=== PATIENT | female | born 1995 | race Caucasian/White ===

== ENCOUNTER 2016-08-15 20:57 | Emergency (ER) | payer OTHER ==
[~2016-08-15] VITALS: Ht 175.3 cm; Wt 62.0 kg
[~2016-08-15 20:57] MED LIST: BACT800T5 PO; DICL50TA3 PO; MACR100C PO; Z.0.BCPILL PO; ZOVI800T13 PO
[2016-08-15 20:59] VITALS: BP 123/64; PULSE 79; RESP 14; TEMP 98.5; O2SAT 97
--- NOTE | 2016-08-15 21:46 | PD ---
HPI Chief Complaint: ENT Complaint Time Seen by Provider: 21:39 Travel History International Travel<30 days: No Contact w/Intl Traveler<30days: No Traveled to known affect area: No History of Present Illness HPI 21-year-old white female presents to emergency Department with complaints of sore throat for the past few days. She states that she's had some nasal congestion and cough. She brought up some mucus with blood in it prior to arrival. She denies any fever or chills. No ear pain, shortness of breath, wheezing, nausea, vomiting, bowel pain urinary symptoms. Symptoms are moderate. PFSH Past Medical History Narrative Medical Herpes, no hypertension or diabetes Respiratory: Yes (HX ASTHMA) Tetanus Vaccination: < 5 Years ?: Not LMP: now Past Surgical History Surgical History: No Previous Surgery Social History Alcohol Use: No Tobacco Use: No Substance Use: No Allergies-Medications (Allergen,Severity, Reaction): Coded Allergies: Latex (Verified Adverse Reaction, Mild, Itching, 08/15/16) Reported Meds & Prescriptions Reported Meds & Active Scripts Active Diclofenac Sodium 50 Mg Tab 50 Mg PO BID Bactrim DS (Sulfamethoxazole-Trimethoprim DS) 1 Tab Tab 1 Tab PO BID Macrobid (Nitrofurantoin Macrocrystals) 100 Mg Cap 100 Mg PO BID 5 Days Reported Control Pills (Miscellaneous Medication) Tab 1 Tab PO DAILY Zovirax (Acyclovir) 800 Mg Tab 800 Mg PO BID Review of Systems Except as stated in HPI: all other systems reviewed are Neg Physical Exam Narrative GENERAL: Well-developed, well-nourished in no acute distress. Nontoxic appearing. HEAD: Normocephalic, atraumatic. EYES: Pupils equal round and reactive. Extraocular motions intact. No scleral icterus. No injection or drainage. ENT: TMs clear without erythema. The external auditory canals clear. Nose: clear . Posterior pharynx is mildly erythematous and moist. No tonsillar edema or exudate. Uvula midline. Airway patent. NECK: Trachea midline.Supple, nontender, moves head freely. No central bony tenderness or spasm. CARDIOVASCULAR: Regular rate and rhythm without murmurs, gallops, or rubs. RESPIRATORY: Clear to auscultation. Breath sounds equal bilaterally. No wheezes , rales, or rhonchi. GASTROINTESTINAL: Abdomen soft, non-tender, nondistended. No hepato-splenomegaly , or palpable masses. No guarding. EXTREMITIES: No clubbing, cyanosis, or edema. No joint tenderness, effusion, or edema noted. BACK: Nontender without deformity or crepitance. No flank tenderness. Data Data Last Documented VS Vital Signs Date Time Temp Pulse Resp B/P Pulse Ox O2 Delivery O2 Flow Rate FiO2 08/15/16 20:59 98.5 79 14 123/64 97 Room Air MDM Medical Decision Making Medical Screen Exam Complete: Yes Emergency Medical Condition: Yes Medical Record Reviewed: Yes Differential Diagnosis MDM: High Differential diagnoses: Strep throat, viral pharyngitis, mono, peritonsillar abscess, retropharyngeal abscess, Nate's angina Narrative Course Patient's given amoxicillin 500 mg by mouth. This is acute pharyngitis Diagnosis Primary Impression: Acute pharyngitis Qualified Code: J02.9 - Acute pharyngitis, unspecified etiology Patient Instructions: General Instructions Additional Instructions: Rest. Force fluids. Saltwater gargles. Tylenol and Advil. Chloraseptic Moro Cepastat lozenge. Pen VK. Follow-up with a primary care doctor in one week. Return to the ER if any problems. Med/Other Pt SpecificInfo: Prescription(s) given Disposition: 01 DISCHARGE HOME Condition: Stable Shai Pascual Aug 15, 2016 21:46
[2016-08-15] MEDS ORDERED: PENI500T PO (21:47)
[2016-08-15] MEDS ORDERED: AMOXICILLIN (TRIHYDRATE) 500 MG CAP PO ONE (22:00)
== END 2016-08-15 22:27 | disposition home or self-care (01) ==
LOC: NETRI 20:57
DX: J02.9 Acute pharyngitis, unspecified (principal)
CPT/HCPCS: 99283